=== PATIENT | male | born 1945 | race Hispanic/Latino ===

== ENCOUNTER → 2022-11-03 | Outpatient (CLI) | payer MEDICARE | END | disposition home or self-care (01) | LOC: RAH 11:03 | PROVIDERS: ATTEND Physical Medicine & Rehabilitation | DX: M48.02 Spinal stenosis, cervical region (principal); M50.21 Other cervical disc displacement, high cervical region; M50.322 Other cervical disc degeneration at C5-C6 level | CPT/HCPCS: 72141 ==